=== PATIENT | female | born 1990 | race Caucasian/White ===

== ENCOUNTER 2018-12-31 19:12 | Inpatient (IN) | payer BC ==
[2018-12-31] MEDS ORDERED: Terbutaline 1 MG/ML SDV SUBCUT PRN (20:47)
[2018-12-31] MEDS ORDERED: Oxytocin/0.9 % Sodium Chloride 30 UNIT/500 ML BAG IV SCH ×2 (21:00→21:45)
[2018-12-31] MEDS ORDERED: Sodium Chloride 0.9% 10 ML SDV IV PRN (21:42)
[2018-12-31] MEDS ORDERED: Misoprostol 200 MCG Tab PO PRN (21:42)
[2018-12-31] MEDS ORDERED: Carboprost Tromethamine 250 MCG/1 ML Amp IM PRN (21:42)
[2018-12-31] MEDS ORDERED: Sodium Chloride 0.9% 10 ML Syringe FLUSH PRN (21:42)
[2018-12-31] MEDS ORDERED: Nalbuphine 10 MG/1 ML Vial IVPUSH PRN (21:42)
[2018-12-31] MEDS ORDERED: Tranexamic Acid 1,000 MG in Sodium Chloride 0.9% 100 ML IV PRN (21:42)
[2018-12-31] MEDS ORDERED: Butorphanol 1 MG/ML SDV IVPUSH PRN (21:42)
[2018-12-31] MEDS ORDERED: Methylergonovine 0.2 MG/1 ML Amp IM PRN (21:42)
[2018-12-31] MEDS ORDERED: Lidocaine 1% 50 ML MDV INJECT PRN (21:42)
[2018-12-31] MEDS ORDERED: Sodium Chloride 0.9% 2.5 ML Syringe FLUSH PRN (21:42)
[2018-12-31] MEDS ORDERED: Water For Irrigation,Sterile 1,000 ML Container IRR PRN (21:42)
[2018-12-31] MEDS: Lactated Ringers 1,000 ML IV SCH (22:12)
--- NOTE | 2018-12-31 22:22 | PCM.SN ---
- Free Text/Narrative Note: Called to LDR2 for an IV start. 2 previous unsuccessful attempts by RN. 20 g IV in right hand on second attempt. Dressed and flushed. Care to RN.
[2019-01-01] MEDS: Lactated Ringers 1,000 ML IV SCH ×2 (00:01→02:29)
--- NOTE | 2019-01-01 00:28 | PCM.PREANE ---
Preanesthetic Assessment - Anesthesia/Transfusion/Family Hx Anesthesia History: Prior Anesthesia Without Reaction Family History of Anesthesia Reaction: No Transfusion History: No Prior Transfusion(s) - Review of Systems General: No Symptoms Pulmonary: No Symptoms Cardiovascular: No Symptoms Gastrointestinal: No Symptoms Neurological: No Symptoms Other: Reports: None - Physical Assessment NPO Status Date: 12/31/18 NPO Status Time: 23:45 (crackers) Height: 5 ft 4 in Weight: 97.522 kg ASA Class: 2E Mental Status: Alert & Oriented x3 Airway Class: Mallampati = 3 Dentition: Reports: Normal Dentition Thyro-Mental Finger Breadths: 3 ROM/Head Extension: Full Lungs: Clear to Auscultation, Normal Respiratory Effort Cardiovascular: Regular Rate, Regular Rhythm - Lab Values: Laboratory Last Values WBC 9.55 K/uL (4.0-11.0) 12/31/18 21:55 RBC 4.09 M/uL (4.30-5.90) L 12/31/18 21:55 Hgb 12.6 g/dL (12.0-16.0) 12/31/18 21:55 Hct 36.5 % (36.0-46.0) 12/31/18 21:55 MCV 89.2 fL (80.0-98.0) 12/31/18 21:55 MCH 30.8 pg (27.0-32.0) 12/31/18 21:55 MCHC 34.5 g/dL (31.0-37.0) 12/31/18 21:55 RDW Std Deviation 43.4 fl (28.0-62.0) 12/31/18 21:55 RDW Coeff of Antony 13 % (11.0-15.0) 12/31/18 21:55 Plt Count 186 K/uL (150-400) 12/31/18 21:55 MPV 10.30 fL (7.40-12.00) 12/31/18 21:55 Nucleated RBC % 0.0 /100WBC 12/31/18 21:55 Nucleated RBCs # 0 K/uL 12/31/18 21:55 Membrane Rupture POSITIVE 12/31/18 18:38 Blood Type O POSITIVE 12/31/18 21:55 Antibody Screen NEGATIVE 12/31/18 21:55 - Allergies Allergies/Adverse Reactions: Allergies Allergy/AdvReac Type Severity Reaction Status Date / Time clarithromycin [From Biaxin] Allergy Rash Verified 12/31/18 19:20 - Acknowledgements Anesthesia Type Planned: Epidural Pt an Appropriate Candidate for the Planned Anesthesia: Yes Alternatives and Risks of Anesthesia Discussed w Pt/Guardian: Yes Pt/Guardian Understands and Agrees with Anesthesia Plan: Yes PreAnesthesia Questionnaire - Past Health History Medical/Surgical History: Denies 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: - Infectious Disease History Infectious Disease History: Reports: Chicken Pox - SUBSTANCE USE Smoking Status *Q: Never Smoker Second Hand Smoke Exposure: No - HOME MEDS Home Medications: Home Meds Levothyroxine [Synthroid] 1 tab PO DAILY 12/31/18 [History] PNV95/Ferrous Fumarate/FA [ Vitamin Tablet] 1 tab PO DAILY 12/31/18 [ History] Vitamin B Complex 1 cap PO DAILY 12/31/18 [History] - CURRENT (IN HOUSE) MEDS Current Meds: Current Medications Butorphanol Tartrate (Stadol) 1 mg IVPUSH Q1H PRN PRN Reason: Pain Carboprost Tromethamine (Hemabate Ds) 250 mcg IM ASDIRECTED PRN PRN Reason: Post Hemorrhage Oxytocin/Sodium Chloride (Oxytocin 30 Unit/500 Ml-Ns) 30 unit in 500 mls @ 2 mls/hr IV TITRATE [facility]; Protocol Last Titration: 12/31/18 23:11 Dose: 4 munits/min, 4 mls/hr Tranexamic Acid 1,000 mg/ (Sodium Chloride) 110 mls @ 660 mls/hr IV ONETIME PRN PRN Reason: Bleeding Lactated Ringer's (Ringers, Lactated) 1,000 mls @ 150 mls/hr IV ASDIRECTED AHMET Last Admin: 01/01/19 00:01 Dose: 999 mls/hr Oxytocin/Sodium Chloride (Oxytocin 30 Unit/500 Ml-Ns) 30 unit in 500 mls @ 999 mls/hr IV TITRATE AHMET Lidocaine HCl (Xylocaine 1%) 50 ml INJECT ONETIME PRN PRN Reason: Laceration repair Methylergonovine Maleate (Methergine) 0.2 mg IM ASDIRECTED PRN PRN Reason: Post Hemorrhage Misoprostol (Cytotec) 200 mcg PO ONETIME PRN PRN Reason: Post Hemorrhage Nalbuphine HCl (Nubain) 10 mg IVPUSH Q1H PRN PRN Reason: Pain (severe 7-10) Sodium Chloride (Saline Flush) 10 ml FLUSH ASDIRECTED PRN PRN Reason: Keep Vein Open Sodium Chloride (Saline Flush) 2.5 ml FLUSH ASDIRECTED PRN PRN Reason: Keep Vein Open Sodium Chloride (Normal Saline) 10 ml IV ASDIRECTED PRN PRN Reason: IV Use Sterile Water (Sterile Water For Irrigation) 1,000 ml IRR ASDIRECTED PRN PRN Reason: delivery Terbutaline Sulfate (Brethine) 0.25 mg SUBCUT ASDIRECTED PRN PRN Reason: Tacysystole Discontinued Medications Fentanyl/Bupivacaine HCl (Snfnkhxr-Ryupi-Pu 2 Mcg/Ml-0.125%) Confirm Administered Dose 100 mls @ as directed .ROUTE .[employer]-MED ONE Stop: 12/31/18 23:58
[2019-01-01] MEDS ORDERED: Acetaminophen 500 MG Tab PO ONE (07:17)
[2019-01-01] MEDS ORDERED: fentaNYL 100 MCG/2 ML SDV ONE (07:38)
[2019-01-01] MEDS ORDERED: Bupivacaine 0.5% 10 ML SDV ONE (07:39)
[2019-01-01] MEDS ORDERED: Docusate Sodium 100 MG Cap PO PRN (10:10)
[2019-01-01] MEDS ORDERED: Bisacodyl 10 MG Supp RECTAL PRN (10:10)
[2019-01-01] MEDS ORDERED: Benzocaine/Menthol 20%-0.5% Spray 78 GM Cannister TOP PRN (10:10)
[2019-01-01] MEDS ORDERED: Lanolin 100% Cream 7 GM Tube TOP PRN (10:10)
[2019-01-01] MEDS ORDERED: Aluminum Hydroxide/Magnesium Hydroxide/Simethicone Susp 30 ML Cup PO PRN (10:10)
[2019-01-01] MEDS ORDERED: oxyCODONE 5 MG Tab PO PRN (10:10)
[2019-01-01] MEDS ORDERED: Ibuprofen 400 MG Tab PO PRN (10:10)
[2019-01-01] MEDS ORDERED: Acetaminophen 500 MG Tab PO PRN (10:10)
[2019-01-01] MEDS ORDERED: Witch Hazel Medicated Pads 40/Jar TOP PRN (10:10)
--- NOTE | 2019-01-01 10:15 | PCM.OPNOTE ---
- General Post-Op/Procedure Note Date of Surgery/Procedure: 01/01/19 Operative Procedure(s): /1 st MLL repaired Findings: Viable female APGARs 9, 9 weight 3610 gm. Spontaneous delivery of intact placenta with 3V cord Pre Op Diagnosis: 39/5 week IUP. PROM Post-Op Diagnosis: Same Anesthesia Technique: Epidural Primary Surgeon: Jessica Way EBL in mLs: 300 Complications: none known Condition: Good Free Text/Narrative:: Intake & Output 12/31/18 01/01/19 01/01/19 22:59 06:59 14:59 Intake Total 1999 Balance 1999 Dictation [id number]
[2019-01-01] MEDS: Ibuprofen 800 MG Tab PO PRN ×2 (13:29→19:33)
--- NOTE | 2019-01-01 15:05 | OR ---
SURGEON: Jessica Way M.D. DATE OF PROCEDURE: PREOPERATIVE DIAGNOSES: 1. A 39-5/7 weeks' intrauterine . 2. Premature rupture of membranes. POSTOPERATIVE DIAGNOSES: 1. A 39-5/7 weeks' intrauterine . 2. Premature rupture of membranes. PROCEDURE: Spontaneous vaginal delivery, first-degree midline laceration repaired. PRIMARY SURGEON: Jessica Way MD. ANESTHESIA: Epidural. ESTIMATED BLOOD LOSS: 300 mL. FINDINGS: Viable female. scores 9 at 1 minute and 9 at 5 minutes. Weight 3610 g. Spontaneous delivery, intact placenta, 3-vessel cord. DISPOSITION: to nursery, mom in LDRP. PROCEDURE DETAILS: Oralia is a 28-year-old G2, P1, at 39-5/7 weeks' gestational age, who was admitted on the evening of 12/31/2018 with leakage of fluid and found to be spontaneously ruptured. She is group B strep negative. Category 1 heart tones. After being admitted, routine labs drawn. She was monitored, and with no evidence of active labor, we initiated on Pitocin augmentation. Progressed slowly through the business test analyst hours from 3 to 4 cm to 5 to 6 cm. Shortly after 8 a.m., she was found to be 6 to 7 cm. IUPC had been placed and forebag had been ruptured at approximately 7 a.m. Clear fluid was noted. Pitocin was titrated for an adequate pattern and progress was more rapidly thereafter. Within the next hour, progressed to complete, 100% effaced, +1 station. I was called for delivery. Upon arrival, the patient was placed in modified dorsal lithotomy position, was prepped and draped in the usual aseptic manner. She was complete, 100% effaced, +3 station. Continued with pushing efforts. Was able to push to deliver the infant's head atraumatically spontaneously followed by anterior shoulder, posterior shoulder, and remainder of the body without difficulty. The 's oropharynx and nares were bulb suctioned. Infant was handed off to her mother with attending nursing staff at the side. After delay, cord was clamped x2 and cut. Cord arterial, cord venous, cord blood sampling obtained. Light pressure was applied while the placenta was delivered spontaneously intact. Vigorous fundal uterine massage was then applied while 30 units of Pitocin was delivered in 500 mL IV fluid. Upon inspection of cervix, vaginal sidewalls, and perineum, there was found to be a first-degree midline laceration. This was repaired using 3-0 Vicryl in the usual fashion. Uterus remained firm. Hemostasis evident. Sponge count, needle count, and instrument count were correct. The patient remained in LDRP, infant to nursery. SAVITA / DONATO /[id number]
--- NOTE | 2019-01-01 20:36 | PCM48HPAN ---
Post Anesthesia Note - EVALUATION WITHIN 48HRS OF ANESTHETIC Vital Signs in Normal Range: Yes Patient Participated in Evaluation: Yes Respiratory Function Stable: Yes Airway Patent: Yes Cardiovascular Function Stable: Yes Hydration Status Stable: Yes Pain Control Satisfactory: Yes Nausea and Vomiting Control Satisfactory: Yes Mental Status Recovered: Yes Resp Rate: 16 - COMMENTS/OBSERVATIONS Free Text/Narrative:: Denies any complaints
[2019-01-01] MEDS: Acetaminophen 500 MG Tab PO PRN (21:24)
[2019-01-02] MEDS: Ibuprofen 800 MG Tab PO PRN ×2 (03:10→10:19)
[2019-01-02] MEDS: Acetaminophen 500 MG Tab PO PRN ×2 (03:11→07:26)
--- NOTE | 2019-01-02 08:12 | PCM.PNPP ---
- General Info Date of Service: 01/02/19 Functional Status: Reports: Pain Controlled, Tolerating Diet, Ambulating, Urinating - Review of Systems General: Denies: Fever, Weakness, Fatigue Pulmonary: Denies: Shortness of Breath Cardiovascular: Denies: Chest Pain, Palpitations, Lightheadedness Gastrointestinal: Denies: Abdominal Pain, Nausea, Vomiting Genitourinary: Reports: No Symptoms Musculoskeletal: Reports: No Symptoms Skin: Reports: No Symptoms Neurological: Reports: No Symptoms Psychiatric: Reports: No Symptoms - General Info Date of Service: 01/02/19 - Patient Data Vital Signs - Most Recent: Last Vital Signs Temp 36.3 C 01/02/19 04:21 Pulse 85 01/02/19 04:21 Resp 16 01/02/19 04:21 BP 101/70 01/02/19 04:21 Pulse Ox 98 01/02/19 04:21 Weight - Most Recent: 97.522 kg Lab Results - Last 24 Hours: Laboratory Results - last 24 hr 01/01/19 01/02/19 Range/Units 09:53 06:28 Hgb 11.9 L (12.0-16.0) g/dL Hct 35.2 L (36.0-46.0) % Cord ABG pH 7.230 (7.18-7.38) Cord ABG Base Excess -5 (-10--2) Cord VBG pH 7.313 (7.25-7.45) Cord VBG Base Excess -5 (-10--2) Med Orders - Current: Current Medications Acetaminophen (Tylenol Extra Strength) 500 mg PO Q4H PRN PRN Reason: Pain Acetaminophen (Tylenol Extra Strength) 1,000 mg PO Q4H PRN PRN Reason: Pain Last Admin: 01/02/19 07:26 Dose: 1,000 mg Al Hydroxide/Mg Hydroxide (Mag-Al Plus) 30 ml PO Q8H PRN PRN Reason: Heartburn Benzocaine/Menthol (Dermoplast Pain Relief 20%-0.5% [place]) 78 gm TOP ASDIRECTED PRN PRN Reason: Perineal Comfort Measure Last Admin: 01/01/19 13:23 Dose: 1 canister Bisacodyl (Dulcolax) 10 mg RECTAL ONETIME PRN PRN Reason: Constipation Carboprost Tromethamine (Hemabate Ds) 250 mcg IM ASDIRECTED PRN PRN Reason: Post Hemorrhage Docusate Sodium (Colace) 100 mg PO BID PRN PRN Reason: Constipation Last Admin: 01/01/19 21:24 Dose: 100 mg Emollient Ointment (Lansinoh Hpa) 0 gm TOP ASDIRECTED PRN PRN Reason: Sore Nipples Last Admin: 01/01/19 21:24 Dose: 7 gram Oxytocin/Sodium Chloride (Oxytocin 30 Unit/500 Ml-Ns) 30 unit in 500 mls @ 2 mls/hr IV TITRATE AHMET; Protocol Last Titration: 01/01/19 09:56 Dose: 500 munits/min, 500 mls/hr Tranexamic Acid 1,000 mg/ (Sodium Chloride) 110 mls @ 660 mls/hr IV ONETIME PRN PRN Reason: Bleeding Lactated Ringer's (Ringers, Lactated) 1,000 mls @ 150 mls/hr IV ASDIRECTED AHMET Last Admin: 01/01/19 02:29 Dose: 150 mls/hr Oxytocin/Sodium Chloride (Oxytocin 30 Unit/500 Ml-Ns) 30 unit in 500 mls @ 999 mls/hr IV TITRATE AHMET Ibuprofen (Motrin) 400 mg PO Q4H PRN PRN Reason: Pain Ibuprofen (Motrin) 800 mg PO Q6H PRN PRN Reason: Pain Last Admin: 01/02/19 03:10 Dose: 800 mg Methylergonovine Maleate (Methergine) 0.2 mg IM ASDIRECTED PRN PRN Reason: Post Hemorrhage Oxycodone HCl (Oxycodone) 5 mg PO Q2H PRN PRN Reason: Pain Sodium Chloride (Saline Flush) 10 ml FLUSH ASDIRECTED PRN PRN Reason: Keep Vein Open Sodium Chloride (Saline Flush) 2.5 ml FLUSH ASDIRECTED PRN PRN Reason: Keep Vein Open Sodium Chloride (Normal Saline) 10 ml IV ASDIRECTED PRN PRN Reason: IV Use Terbutaline Sulfate (Brethine) 0.25 mg SUBCUT ASDIRECTED PRN PRN Reason: Tacysystole Witch Izzy (Tucks) 1 pad TOP ASDIRECTED PRN PRN Reason: comfort care Last Admin: 01/01/19 13:23 Dose: 1 container Discontinued Medications Acetaminophen (Tylenol Extra Strength) 1,000 mg PO ONETIME ONE Stop: 01/01/19 07:18 Last Admin: 01/01/19 07:55 Dose: 1,000 mg Bupivacaine HCl (Sensorcaine-Mpf 0.5%) Confirm Administered Dose 10 ml .ROUTE .STK-MED ONE Stop: 01/01/19 07:40 Last Admin: 01/01/19 19:12 Dose: Not Given Butorphanol Tartrate (Stadol) 1 mg IVPUSH Q1H PRN PRN Reason: Pain Fentanyl (Sublimaze) Confirm Administered Dose 100 mcg .ROUTE .STK-MED ONE Stop: 01/01/19 07:39 Last Admin: 01/01/19 19:12 Dose: Not Given Fentanyl/Bupivacaine HCl (Lymmmzda-Bbzfn-Bz 2 Mcg/Ml-0.125%) Confirm Administered Dose 100 mls @ as directed .ROUTE .[employer]-MED ONE Stop: 12/31/18 23:58 Last Admin: 01/01/19 19:12 Dose: Not Given Fentanyl/Bupivacaine HCl (Wcqamdbl-Ppwha-Qq 2 Mcg/Ml-0.125%) Confirm Administered Dose 100 mls @ as directed .ROUTE .[employer]-MED ONE Stop: 01/01/19 07:46 Last Admin: 01/01/19 19:12 Dose: Not Given Lidocaine HCl (Xylocaine 1%) 50 ml INJECT ONETIME PRN PRN Reason: Laceration repair Misoprostol (Cytotec) 200 mcg PO ONETIME PRN PRN Reason: Post Hemorrhage Nalbuphine HCl (Nubain) 10 mg IVPUSH Q1H PRN PRN Reason: Pain (severe 7-10) Sterile Water (Sterile Water For Irrigation) 1,000 ml IRR ASDIRECTED PRN PRN Reason: delivery - Infant Interaction Support Person: - Recovery Exam Fundal Tone: Firm Fundal Level: 2 Fingerbreadths Below Umbilicus Fundal Placement: Midline Lochia Amount: None Lochia Color: Rubra/Red Perineum Description: Other (see below) Other Perinuem Description: first degree laceration with repair Episiotomy/Laceration: Approximated Bladder Status: Voiding Urinary Elimination: Voided - Exam General: Alert, Oriented Lungs: Normal Respiratory Effort Cardiovascular: Regular Rate, Regular Rhythm GI/Abdominal Exam: Soft, Non-Tender Extremities: Pedal Edema (1+). No: Nicole's Sign Skin: Warm, Dry, Intact Neurological: No New Focal Deficit Psy/Mental Status: Alert, Normal Affect, Normal Mood - Problem List & Annotations (1) Vaginal delivery SNOMED Code(s): 629246526 Code(s): O80 - ENCOUNTER FOR FULL-TERM UNCOMPLICATED DELIVERY Status: Acute Current Visit: No - Problem List Review Problem List Initiated/Reviewed/Updated: Yes - My Orders Last 24 Hours: My Active Orders 01/01/19 10:10 Patient Status [ADT] Routine May Shower [RC] ASDIRECTED Up ad Lauren [RC] ASDIRECTED Vital Signs [RC] PER UNIT ROUTINE Acetaminophen [Tylenol Extra Strength] 1,000 mg PO Q4H PRN Acetaminophen [Tylenol Extra Strength] 500 mg PO Q4H PRN Alum Hydrox/Mag Hydrox/Simeth [Mag-Al Plus] 30 ml PO Q8H PRN Benzocaine/Menthol [Dermoplast Pain Relief 20%-0.5% [place]] 78 gm TOP ASDIRECTED PRN Bisacodyl [Dulcolax] 10 mg RECTAL ONETIME PRN Docusate Sodium [Colace] 100 mg PO BID PRN Ibuprofen [Motrin] 400 mg PO Q4H PRN Ibuprofen [Motrin] 800 mg PO Q6H PRN Lanolin [Lansinoh HPA] See Dose Instructions TOP ASDIRECTED PRN Witch Izzy [Tucks] 1 pad TOP ASDIRECTED PRN oxyCODONE 5 mg PO Q2H PRN Assess Lochia [WOMSER] Per Unit Routine Assess Uterine Involution [WOMSER] Per Unit Routine Ice Therapy [OM.PC] Per Unit Routine Perineal Care [OM.PC] Per Unit Routine Peripheral IV Discontinue [OM.PC] Routine Sitz Bath [OM.PC] Per Unit Routine 01/01/19 Lunch Regular Diet [DIET] 01/02/19 08:10 Ready for Discharge [RC] PER UNIT ROUTINE - Assessment Assessment:: PPD 1 status post /1st MLL repaired - Plan Plan:: Would like to go home later today. Discharge to home. Discharge instructions reviewed. Follow up at [facility] 6 weeks. Infection and bleeding warnings reviewed.
[2019-01-02 11:00] VITALS: BP 118/63
== END 2019-01-02 12:30 | disposition home or self-care (01) | DRG 560 ==
LOC: MW.OBCHECK 19:12 → MW.OB 19:53 → MW.OBCHECK 21:34 → OBSVTOIN 01-01 09:53 → MW.OB 01-01 16:00
PROVIDERS: ADMIT Obstetrics & Gynecology; ATTEND Obstetrics & Gynecology
PROC: 10E0XZZ Delivery of Products of Conception, External Approach (ICD-10-PCS; principal; 2019-01-01)
PROC: 3E0R3BZ Introduction of Anesthetic Agent into Spinal Canal, Percutaneous Approach (ICD-10-PCS; 2019-01-01)
PROC: 00HU33Z Insertion of Infusion Device into Spinal Canal, Percutaneous Approach (ICD-10-PCS; 2019-01-01)
PROC: 10H07YZ Insertion of Other Device into Products of Conception, Via Natural or Artificial Opening (ICD-10-PCS; 2019-01-01)
PROC: 0HQ9XZZ Repair Perineum Skin, External Approach (ICD-10-PCS; 2019-01-01)
DX: O99.284 Endocrine, nutritional and metabolic diseases complicating childbirth (principal); E03.9 Hypothyroidism, unspecified; Z3A.39 39 weeks gestation of pregnancy; Z37.0 Single live birth; Z88.1 Allergy status to other antibiotic agents; O70.0 First degree perineal laceration during delivery
CPT/HCPCS: 36410; 36415; 51702; 59025; 59409; 82803; 84112; 85014; 85018; 85027; 86850; 86900; 86901; A9270-GY; J2590; J7120

== ENCOUNTER 2019-03-05 13:36 | Day surgery (SDC) | payer BC ==
[~2019-03-05 13:36] MED LIST: Bupivacaine 0.25% 10 ML SDV ONE; Glycopyrrolate 0.2 MG/ML SDV ONE; Ketorolac 30 MG/ML SDV ONE; Lidocaine 2% 5 ML SDV ONE; Midazolam 1 MG/ML 2 ML SDV ONE; Neostigmine Methylsulfate 1 MG/ML 5 ML Syringe ONE; Ondansetron 4 MG/2 ML SDV ONE; Propofol 200 MG/20 ML SDV ONE; Rocuronium 100 MG/10 ML Syringe ONE; ceFAZolin 2 GM in Premix Bag 1 BAG IV ONE; cefOXitin 2 GM in Premix Bag 1 BAG IV ONE; fentaNYL 250 MCG/5 ML SDV ONE
[2019-03-05] MEDS ORDERED: Levofloxacin/Dextrose 5%-Water 750 MG in Premix Bag 1 BAG IV ONE (13:59)
[2019-03-05] MEDS: Lactated Ringers 1,000 ML IV SCH ×2 (14:00→17:35)
--- NOTE | 2019-03-05 14:06 | PCM.PREANE ---
Preanesthetic Assessment - Anesthesia/Transfusion/Family Hx Anesthesia History: Prior Anesthesia Without Reaction Family History of Anesthesia Reaction: No Transfusion History: No Prior Transfusion(s) Intubation History: Unknown - Review of Systems General: No Symptoms Pulmonary: No Symptoms Cardiovascular: No Symptoms Gastrointestinal: Abdominal Pain Neurological: No Symptoms Other: Reports: None - Physical Assessment ASA Class: 2E Mental Status: Alert & Oriented x3 Airway Class: Mallampati = 2 Dentition: Reports: Normal Dentition Thyro-Mental Finger Breadths: 3 Mouth Opening Finger Breadths: 3 ROM/Head Extension: Full Lungs: Clear to Auscultation, Normal Respiratory Effort Cardiovascular: Regular Rate, Regular Rhythm - Allergies Allergies/Adverse Reactions: Allergies Allergy/AdvReac Type Severity Reaction Status Date / Time clarithromycin [From Biaxin] Allergy Rash Verified 12/31/18 19:20 - Blood Blood Available: No - Anesthesia Plan Pre-Op Medication Ordered: None - Acknowledgements Anesthesia Type Planned: General Anesthesia Pt an Appropriate Candidate for the Planned Anesthesia: Yes Alternatives and Risks of Anesthesia Discussed w Pt/Guardian: Yes Pt/Guardian Understands and Agrees with Anesthesia Plan: Yes PreAnesthesia Questionnaire - Past Health History Medical/Surgical History: Denies Medical/Surgical History Gastrointestinal History: Reports: Other (See Below) (acute appendicitis) 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: - Infectious Disease History Infectious Disease History: Reports: Chicken Pox - Past Surgical History HEENT Surgical History: Reports: Oral Surgery Female Surgical History: Reports: Breast Reduction - HOME MEDS Home Medications: Home Meds Levothyroxine [Synthroid] 1 tab PO DAILY 12/31/18 [History] PNV95/Ferrous Fumarate/FA [ Vitamin Tablet] 1 tab PO DAILY 12/31/18 [ History] Vitamin B Complex 1 cap PO DAILY 12/31/18 [History] - CURRENT (IN HOUSE) MEDS Current Meds: Current Medications Lactated Ringer's (Ringers, Lactated) 1,000 mls @ 125 mls/hr IV ASDIRECTED AHMET Levofloxacin/Dextrose 750 mg/ (Premix) 150 mls @ 100 mls/hr IV ONETIME ONE Stop: 03/05/19 15:28 Discontinued Medications Bupivacaine HCl (Sensorcaine-Mpf 0.25%) Confirm Administered Dose 20 ml .ROUTE .STK-MED ONE Stop: 03/05/19 13:07 Fentanyl (Sublimaze) Confirm Administered Dose 250 mcg .ROUTE .STK-MED ONE Stop: 03/05/19 12:54 Glycopyrrolate (Robinul) Confirm Administered Dose 0.6 mg .ROUTE .STK-MED ONE Stop: 03/05/19 12:56 Glycopyrrolate (Robinul) Confirm Administered Dose 0.2 mg .ROUTE .STK-MED ONE Stop: 03/05/19 13:21 Cefazolin Sodium/Dextrose 2 gm (/ Premix) 50 mls @ 100 mls/hr IV ONETIME ONE Stop: 03/05/19 13:27 Cefoxitin Sodium 2 gm/ Premix 50 mls @ 100 mls/hr IV ONETIME ONE Stop: 03/05/19 13:31 Ketorolac Tromethamine (Toradol) Confirm Administered Dose 30 mg .ROUTE .STK- MED ONE Stop: 03/05/19 13:21 Lidocaine (Xylocaine-Mpf 2%) Confirm Administered Dose 5 ml .ROUTE .STK-MED ONE Stop: 03/05/19 13:21 Midazolam HCl (Versed 1 Mg/Ml) Confirm Administered Dose 2 mg .ROUTE .STK-MED ONE Stop: 03/05/19 12:54 Neostigmine Methylsulfate (Neostigmine) Confirm Administered Dose 5 mg .ROUTE .STK-MED ONE Stop: 03/05/19 12:56 Ondansetron HCl (Zofran) Confirm Administered Dose 4 mg .ROUTE .STK-MED ONE Stop: 03/05/19 13:21 Propofol (Diprivan 20 Ml) Confirm Administered Dose 200 mg .ROUTE .STK-MED ONE Stop: 03/05/19 12:54 Rocuronium [place] (Zemuron) Confirm Administered Dose 100 mg .ROUTE .STK-MED ONE Stop: 03/05/19 13:21 Succinylcholine Chloride (Succinylcholine Chloride) Confirm Administered Dose 200 mg .ROUTE .STK-MED ONE Stop: 03/05/19 13:21
--- NOTE | 2019-03-05 14:50 | PCM.SN ---
- Free Text/Narrative Note: hp dict [id number]
--- NOTE | 2019-03-05 15:31 | HP ---
DATE OF : 1990 PRIMARY CARE PHYSICIAN: None PCP The patient came by private car from [place] for acute appendicitis. HISTORY OF PRESENT ILLNESS: The patient is a 28-year-old lady, has abdominal pain, fever, and chills for about 3 days and thinks she is constipated and self-medicated. Plan is to seek help in the emergency room, got a CAT scan which shows acute appendicitis. The patient would then come by private car to come to our emergency room for further management. PAST MEDICAL HISTORY: Significant for no diabetes, ME, CVA, or hypertension. PAST SURGICAL HISTORY: Normal vaginal delivery x2, wisdom tooth, and breast reduction. ALLERGIES: Please refer to nursing for details. MEDICATIONS: Please refer to nursing for details. PHYSICAL EXAMINATION: GENERAL: A pleasant lady, very anxious, in no acute distress. HEENT: Normocephalic and atraumatic. Sclerae are anicteric. LUNGS: Clear to auscultation. HEART: Regular rate and rhythm. ABDOMEN: Soft and nondistended. No pulsating tender midline abdominal structure. Exquisite tenderness at the McBurney point. No rebound tenderness. LABORATORY DATA: White count is 11.7. A&P CAT scan reading is acute appendicitis. Our Radiology further report is saying that with 260 mL fluid in the peritoneum likely perforated. The patient will need timely surgery. Risks and benefits discussed with this patient for appendectomy laparoscopic versus open, and postop cause would depend on the patient's surgery. Plan has been discussed with the patient. The patient concurred to proceed as planned. As always, thank you for the kind referral. WES SEWELL /[id number] JORDI
[2019-03-05] MEDS ORDERED: Propofol 200 MG/20 ML SDV ONE (15:35)
[2019-03-05] MEDS ORDERED: fentaNYL 100 MCG/2 ML SDV ONE (15:37)
[2019-03-05] MEDS ORDERED: Midazolam 1 MG/ML 2 ML SDV ONE (15:45)
[2019-03-05] MEDS ORDERED: HYDROmorphone 2 MG/ML SDV IVPUSH ONE (15:53)
[2019-03-05] MEDS ORDERED: fentaNYL 100 MCG/2 ML SDV IVPUSH PRN (15:53)
--- NOTE | 2019-03-05 16:23 | PCM.OPNOTE ---
- General Post-Op/Procedure Note Date of Surgery/Procedure: 03/05/19 Operative Procedure(s): lap appendectomy, and drain place, surgicell placed, and peritoneal fluid sampled Findings: appendicitis suppurativa; gross perf not observed; and peritoneal fluid was clear straw yellow; surgicell placed, flat 10 selma drain placed; and peritoneal fluid sent for path; [id number] Pre Op Diagnosis: acute appendicitis Post-Op Diagnosis: Same Anesthesia Technique: General ET Tube Primary Surgeon: Jimmy Bean Pathology: sent Surgical Drain/Tube Type: Aric Lopes Flat Drain Complications: None Condition: Good
[2019-03-05] MEDS ORDERED: Morphine 4 MG/ML Syringe IVPUSH PRN (16:24)
[2019-03-05] MEDS ORDERED: Ondansetron 4 MG/2 ML SDV IVPUSH PRN ×2 (16:26→18:24)
[2019-03-05] MEDS ORDERED: Lactated Ringers 1,000 ML IV SCH (16:30)
--- NOTE | 2019-03-05 16:35 | PCM.POSTAN ---
POST ANESTHESIA ASSESSMENT - RESPIRATORY Respiratory Status: Respiratory Rate WNL - CARDIOVASCULAR CV Status: Pulse Rate WNL - GASTROINTESTINAL GI Status: No Symptoms, [place] - POST OP HYDRATION Hydration Status: Adequate & Stable
[2019-03-05] MEDS ORDERED: Haloperidol Lactate 5 MG/ML SDV IV STA (16:43)
--- NOTE | 2019-03-05 16:54 | PCM48HPAN ---
Post Anesthesia Note - EVALUATION WITHIN 48HRS OF ANESTHETIC Vital Signs in Normal Range: Yes Patient Participated in Evaluation: Yes Respiratory Function Stable: Yes Airway Patent: Yes Cardiovascular Function Stable: Yes Hydration Status Stable: Yes Pain Control Satisfactory: Yes Nausea and Vomiting Control Satisfactory: Yes Mental Status Recovered: Yes Resp Rate: 12
--- NOTE | 2019-03-05 17:15 | OR ---
SURGEON: Jimmy Bean MD DATE OF PROCEDURE: 03/05/2019 PREOPERATIVE DIAGNOSIS: Acute appendicitis. POSTOPERATIVE DIAGNOSIS: Appendicitis, suppurative. PROCEDURE PERFORMED: Laparoscopic appendectomy with drain placement and Surgicel placement. PRIMARY SURGEON: Jimmy Bean MD. PhD COMPLICATION: None. FINDINGS: The appendix has been already walled off by omentum and the surrounding organ, making it like a meatball, took some time to dissect it out. Gross perforation is not observed, but there is no doubt in my mind it is already perforated is because of lumps and bumps on the surface. However, peritoneal fluid is clear straw yellow, so maybe there is no perforation. Surgicel placed for hemostasis and 10-flat MARTINEZ drain placed. DESCRIPTION OF PROCEDURE: The patient was taken to the operating room and placed in the supine position. Following induction of general endotracheal anesthesia, the patient's abdomen was prepped and draped in the sterile fashion. A time-out has been called. The patient was identified. The procedure was identified. The antibiotics were identified. The procedure then proceeded. The abdomen was prepped and draped in a standard fashion. After assessment of appropriate landmarks, a 12 millimeter trocar was inserted supraumbilically using Optiview and pneumoperitoneum was then achieved. This was followed with placement of 5 millimeter port in the right upper quadrant and another 5 millimeter port infraumbilically. The camera was inserted supraumbilical site and two laparoscopic Orange retractors were then inserted through the other two sites. Following the cecum, the appendix was located. The appendix was then lifted up, and using a GI stapler the appendix was amputated at the base. And using the GI stapler, the mesoappendix was then amputated. The appendix was retrieved by an endoscopic bag and sent for pathologist. This was then followed by re-insertion of the camera to examine the staple line, and hemostasis. The trocars were then removed. The patient was then awakened, extubated, and transferred to the recovery room in hemodynamically stable condition. Prior to closing, sponge count and instrument count was correct. Dr. Bean was present throughout the whole procedure. As always, thank you for the kind referral. Intraoperative findings as dictated above. After the appendix was removed and Surgicel was placed on the staple line to help in hemostasis, a 10-flat MARTINEZ drain was put in the suprapubic trocar site, and the umbilical site was closed with 2-0 Vicryl, and skin approximated by use of skin staple. The other 2 trocar sites closed with skin staple and follow with the rest of the dictation. As always, thank you for the kind referral. WES SEWELL /[id number] MTDMichael
[2019-03-05] MEDS: Acetaminophen/oxyCODONE 325-5 MG Tab PO PRN ×2 (17:55→23:53)
[2019-03-05] MEDS ORDERED: ALPRAZOLAM 1 MG PO PRN (18:31)
[2019-03-05] MEDS ORDERED: ALPRAZolam 0.5 MG Tab PO PRN (18:37)
[2019-03-05] MEDS: Amoxicillin/Clavulanate K 875-125 MG Tab PO SCH (21:31)
[2019-03-06] MEDS: Lactated Ringers 1,000 ML IV SCH (01:44)
--- NOTE | 2019-03-06 06:40 | PCM48HPAN ---
Post Anesthesia Note - EVALUATION WITHIN 48HRS OF ANESTHETIC Vital Signs in Normal Range: Yes Patient Participated in Evaluation: Yes Respiratory Function Stable: Yes Airway Patent: Yes Cardiovascular Function Stable: Yes Hydration Status Stable: Yes Pain Control Satisfactory: Yes Nausea and Vomiting Control Satisfactory: Yes Mental Status Recovered: Yes Resp Rate: 17 - COMMENTS/OBSERVATIONS Free Text/Narrative:: no anesthesia problems
[2019-03-06] MEDS: Acetaminophen/oxyCODONE 325-5 MG Tab PO PRN (06:53)
[2019-03-06] MEDS ORDERED: Levothyroxine 100 MCG Tab PO SCH (07:00)
[2019-03-06 07:43] VITALS: BP 105/60
[2019-03-06] MEDS: Amoxicillin/Clavulanate K 875-125 MG Tab PO SCH (09:53)
== END 2019-03-06 10:49 | disposition home or self-care (01) ==
LOC: MW.SDS 13:36 → MW.MS 16:25 → MW.SDS 03-06 10:49
PROVIDERS: ATTEND Surgery
DX: K35.80 Unspecified acute appendicitis (principal); Z88.1 Allergy status to other antibiotic agents; Z79.899 Other long term (current) drug therapy
CPT/HCPCS: 44970; A4217; A9270; C1776; J0330; J1885; J1956; J2001; J2250; J2405; J2704; J3010; J3490; J7120; 88104; 88304

== ENCOUNTER 2020-12-16 16:55 | Emergency (ER) | payer BC ==
[2020-12-16] MEDS ORDERED: Ondansetron 4 MG/2 ML SDV IVPUSH ONE (18:23)
[2020-12-16] MEDS ORDERED: Sodium Chloride 0.9% 1,000 ML IV ONE (18:23)
--- NOTE | 2020-12-16 18:30 | EDM.PDOC ---
<Edi Pugh - Last Filed: 12/16/20 18:59> ED HPI GENERAL MEDICAL PROBLEM - General Chief Complaint: General Stated Complaint: PREGANCY MEDS ISSUES Time Seen by Provider: 12/16/20 17:56 Source of Information: Reports: Patient History Limitations: Reports: No Limitations - History of Present Illness INITIAL COMMENTS - FREE TEXT/NARRATIVE: Patient is a 30-year-old female who was sent over for evaluation. Patient has history of depression and anxiety and takes Cymbalta and Xanax. Patient, she was 5 weeks at this time she stopped taking those medications has been feeling little anxious. Patient reports some nausea vomiting some tremors as well. Patient states that she does not feel well and does not plan on restarting the anxiety or depression medication. This time patient has no abdominal pain vaginal bleeding or cramps. 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: Neurological History: Reports: Concussion, Migraines, Other (See Below) Other Neuro History: hx of motion sickness Psychiatric History: Reports: Anxiety Endocrine/Metabolic History: Reports: Hypothyroidism, Obesity/BMI 30+ - Infectious Disease History Infectious Disease History: Reports: Chicken Pox - Past Surgical History Head Surgeries/Procedures: Reports: None HEENT Surgical History: Reports: Oral Surgery Other HEENT Surgeries/Procedures: wisdom teeth removed Female Surgical History: Reports: Breast Reduction Social & Family History - Family History : Reports: Renal Calculus Endocrine/Metabolic: Reports: Diabetes, Type I, Other (See Below) Other Endocrine/Metabolic Family History: kidney failure Hematologic: Reports: Anemia Oncologic: Reports: Lung, Other (See Below) Other Oncologic Family History: melanoma - Caffeine Use Caffeine Use: Reports: Coffee ED ROS GENERAL - Review of Systems Review Of Systems: See Below Constitutional: Reports: No Symptoms HEENT: Reports: No Symptoms Respiratory: Reports: No Symptoms Cardiovascular: Reports: No Symptoms Endocrine: Reports: No Symptoms GI/Abdominal: Reports: No Symptoms : Reports: No Symptoms Musculoskeletal: Reports: No Symptoms Skin: Reports: No Symptoms Neurological: Reports: Tingling Psychiatric: Reports: No Symptoms Hematologic/Lymphatic: Reports: No Symptoms Immunologic: Reports: No Symptoms ED EXAM, GENERAL - Physical Exam Exam: See Below Exam Limited By: No Limitations General Appearance: Alert, WD/WN, No Apparent Distress Eye Exam: Bilateral Eye: EOMI, PERRL Respiratory/Chest: No Respiratory Distress, Lungs Clear Cardiovascular: Normal Peripheral Pulses, Regular Rate, Rhythm GI/Abdominal: Normal Bowel Sounds, Soft, Non-Tender Neurological: Alert, Oriented, Normal Cognition Course - Re-Assessments/Exams Free Text/Narrative Re-Assessment/Exam: 12/16/20 19:00 Spoke the patient again and she again denies any suicide homicide ideation. Patient has a family bedside and they both state the patient has no thoughts of wanting harm himself. We spoke to about giving patient benzos the patient is active withdrawal we can give a small dose of benzos. Dr. Pruitt just concerned about patient suicide thoughts but again patient denies any notes also mention it was here we have no records of the mention of things. Patient will have labs and ultrasound was negative can be discharged home. Departure - Departure Disposition: Home, Self-Care 01 Clinical Impression: Abdominal cramping affecting Withdrawal from benzodiazepine Qualifiers: Complication of substance-induced condition: uncomplicated Qualified Code(s): F13.230 - Sedative, hypnotic or anxiolytic dependence with withdrawal, uncomplicated - Discharge Information Instructions: Benzodiazepine Withdrawal, Abdominal Pain During Referrals: PCP,None [Primary Care Provider] - Forms: ED Department Discharge Additional Instructions: You have been seen and evaluated in the ER today secondary to your as well as concerns of withdrawing from your benzodiazepine, Xanax. After discussion with Dr. Pruitt, he has been given a dose of IV Ativan to help you with your current symptoms. She is recommended that you take Xanax 0.5 mg (half a tablet) every 8 hours only as needed for anxiety. Please keep your appointment on December 27 with your psychiatrist for further discussion regarding your antidepressant and antianxiety medications. Please return the ER if you have any new or concerning symptoms. Your ultrasound today revealed a roughly 5-1/2-week intrauterine . It was too early at this time to visualize any cardiac activity. The following information is given to patients seen in the emergency department who are being discharged to home. This information is to outline your options for follow-up care. We provide all patients seen in our emergency department with a follow-up referral. The need for follow-up, as well as the timing and circumstances, are variable depending upon the specifics of your emergency department visit. If you don't have a primary care physician on staff, we will provide you with a referral. We always advise you to contact your personal physician following an emergency department visit to inform them of the circumstance of the visit and for follow-up with them and/or the need for any referrals to a consulting specialist. The emergency department will also refer you to a specialist when appropriate. This referral assures that you have the opportunity for follow-up care with a specialist. All of these measure are taken in an effort to provide you with optimal care, which includes your follow-up. Under all circumstances we always encourage you to contact your private physician who remains a resource for coordinating your care. When calling for follow-up care, please make the office aware that this follow-up is from your recent emergency room visit. If for any reason you are refused follow-up, please contact the [facility] Emergency Department at and asked to speak to the emergency department charge nurse. [facility] - Primary Care [address] [place] [address] [place] [address] Sepsis Event Note (ED) - Evaluation Sepsis Screening Result: No Definite Risk - Assessment/Plan Plan: Patient is a 30-year-old female who found that she is 5 weeks presents today she is having nausea vomiting and body aches. Patient also states she was on Xanax and recently stopped the medication because she found she was . Patient plans again to stop the medication. On exam patient have any noticeable tremors or tongue fasciculation. Patient given IV fluids and Zofran for nausea and reassess. <Miguel Ángel Mas - Last Filed: 12/16/20 20:31> ED HPI GENERAL MEDICAL PROBLEM - History of Present Illness INITIAL COMMENTS - FREE TEXT/NARRATIVE: 8:28 PM: Signout received at 7 PM. This is a 30-year-old female who presents to the ER today secondary to concern of benzo withdrawal. Patient has been on Xanax 1 mg 3 times a day and Cymbalta. Patient has tried to stop her Xanax se condary to finding out that she is . Upon presentation to the ED there is concern about early withdrawal. Patient was given Ativan 1 mg IV with significant improvement in her symptoms. Patient reports that she feels much improved after the medication here in the ED. Patient had an ultrasound which revealed a 5-week IUP no heart activity at this time. Patient's beta hCG is 14,000. No evidence of ectopic . Case was discussed with Dr. Pruitt who has recommended that the patient take her Xanax half a tablet, 0.5 mg, 3 times a day only as needed. Patient has an appointment on December 27 with her psychiatrist for further evaluation of her Cymbalta. Patient has decreased her Cymbalta dose down to 60 mg. Patient adamantly denies any suicidal ideation or thoughts of self-harm. Patient and her family member at bedside have no concerns regarding safety or self-harm issues. I have discussed all this with the patient and her family member at bedside and they are both in complete agreement with the current plan as outlined. Patient will return to the ED if she develops any new or concerning symptoms. Reassessment at the time of disposition demonstrates that the patient is in no acute distress. The patient has remained stable throughout the entire ED visit and is without objective evidence for acute process requiring urgent intervention or hospitalization. The patient is stable for discharge, counseling is provided as documented above, discussed symptomatic treatment and specific conditions for return. I have spoken with the patient/caregiver and discussed todays findings, in addition to providing specific details for the plan of care. Questions are answered and there is agreement with the plan. Course - Vital Signs Last Recorded V/S: Last Vital Signs Temp 98.0 F 12/16/20 18:06 Pulse 76 12/16/20 18:06 Resp 18 12/16/20 18:06 BP 135/78 12/16/20 18:06 Pulse Ox 97 12/16/20 18:06 - Orders/Labs/Meds Orders: Active Orders 24 hr Category Date Time Status OB 1st Tri NT Measure [US] Stat Exams 12/16/20 19:01 Ordered Labs: Laboratory Tests 12/16/20 12/16/20 Range/Units 18:40 18:40 WBC 10.71 (4.0-11.0) K/uL RBC 4.81 (4.30-5.90) M/uL Hgb 15.7 (12.0-16.0) g/dL Hct 44.2 (36.0-46.0) % MCV 91.9 (80.0-98.0) fL MCH 32.6 H (27.0-32.0) pg MCHC 35.5 (31.0-37.0) g/dL RDW Std Deviation 41.4 (28.0-62.0) fl RDW Coeff of Antony 12 (11.0-15.0) % Plt Count 324 (150-400) K/uL MPV 10.20 (7.40-12.00) fL Neut % (Auto) 74.9 (48.0-80.0) % Lymph % (Auto) 19.0 (16.0-40.0) % Cobb % (Auto) 5.6 (0.0-15.0) % Eos % (Auto) 0.4 (0.0-7.0) % Baso % (Auto) 0.1 (0.0-1.5) % Neut # (Auto) 8.0 H (1.4-5.7) K/uL Lymph # (Auto) 2.0 (0.6-2.4) K/uL Cobb # (Auto) 0.6 (0.0-0.8) K/uL Eos # (Auto) 0.0 (0.0-0.7) K/uL Baso # (Auto) 0.0 (0.0-0.1) K/uL Nucleated RBC % 0.0 /100WBC Nucleated RBCs # 0 K/uL Sodium 137 (136-145) mmol/L Potassium 3.8 (3.5-5.1) mmol/L Chloride 100 (98-107) mmol/L Carbon Dioxide 21.7 (21.0-32.0) mmol/L BUN 10 (7.0-18.0) mg/dL Creatinine 0.8 (0.6-1.0) mg/dL Est Cr Clr Drug Dosing 90.41 mL/min Estimated GFR (MDRD) > 60.0 ml/min Glucose 80 (74-106) mg/dL Calcium 8.9 (8.5-10.1) mg/dL Total Bilirubin 0.8 (0.2-1.0) mg/dL AST 18 (15-37) IU/L ALT 24 (14-63) IU/L Alkaline Phosphatase 74 (46-116) U/L Total Protein 8.4 H (6.4-8.2) g/dL Albumin 4.4 (3.4-5.0) g/dL Globulin 4.0 (2.6-4.0) g/dL Albumin/Globulin Ratio 1.1 (0.9-1.6) HCG, Quant 56228.0 mIU/mL Meds: Medications Discontinued Medications Generic Name Dose Route Start Last Admin Trade Name Freq PRN Reason Stop Dose Admin Sodium Chloride 1,000 mls @ 999 mls/hr 12/16/20 18:23 12/16/20 18:45 Normal Saline IV 12/16/20 19:23 999 mls/hr .BOLUS ONE Administration Lorazepam 0.5 mg 12/16/20 18:57 12/16/20 19:07 Lorazepam 0.5 Mg Tab PO 12/16/20 18:58 0.5 mg ONETIME ONE Administration Ondansetron HCl 4 mg 12/16/20 18:23 12/16/20 18:45 Ondansetron 4 Mg/2 Ml Sdv IVPUSH 12/16/20 18:24 4 mg ONETIME ONE Administration Departure - Departure Time of Disposition: 20:30 Condition: Good Sepsis Event Note (ED) - Focused Exam Vital Signs: Vital Signs Temp Pulse Resp BP Pulse Ox 12/16/20 18:06 98.0 F 76 18 135/78 97
[2020-12-16] MEDS ORDERED: LORazepam 0.5 MG Tab PO ONE (18:57)
[2020-12-16 19:29] LABS: BLOOD UREA NITROGEN,BUN 10 mg/dL (7.0-18.0); CARBON DIOXIDE,CO2 21.7 mmol/L (21.0-32.0); CHLORIDE,CL 100 mmol/L (98-107); GLUCOSE RANDOM 80 mg/dL (74-106); POTASSIUM,K 3.8 mmol/L (3.5-5.1); SODIUM,NA 137 mmol/L (136-145)
[2020-12-16 21:04] VITALS: BP 136/96; PULSE 88
--- NOTE | 2020-12-16 21:08 | US ---
INDICATION: Five weeks TECHNIQUE: Ultrasound OB pelvis transvaginal. Real-time zamora-scale imaging of the pelvis was performed. COMPARISON: None available FINDINGS: An intrauterine gestational sac is seen, containing an apparent pole with a crown-rump length of 1 mm, out of range. cardiac activity is not documented. A yolk sac is seen, measuring 3 mm. The right ovary measures 2.1 x 3.3 x 4.3 cm and the left ovary measures 2.7 x 1.4 x 3.4 cm. Bilateral ovarian Doppler flow is documented. Small free fluid is seen. IMPRESSION: An early intrauterine gestation. The crown-rump length is out of range. No cardiac activity is documented at this time. Recommend correlation with beta hCG levels and short-term follow-up study to document viability. Small free fluid Dictated by Eric Nicholson MD @ 12/16/2020 9:06:[address] Eric Nicholson @ Dec 16 2020 9:06PM
== END 2020-12-16 21:05 | disposition home or self-care (01) ==
LOC: MW.ED 16:55
DX: O99.891 Other specified diseases and conditions complicating pregnancy (principal); O99.211 Obesity complicating pregnancy, first trimester; O99.281 Endocrine, nutritional and metabolic diseases complicating pregnancy, first trimester; O99.321 Drug use complicating pregnancy, first trimester; R10.9 Unspecified abdominal pain; F13.230 Sedative, hypnotic or anxiolytic dependence with withdrawal, uncomplicated; E03.9 Hypothyroidism, unspecified; E66.9 Obesity, unspecified; Z3A.01 Less than 8 weeks gestation of pregnancy; Z88.1 Allergy status to other antibiotic agents
CPT/HCPCS: 36415; 76813; 80053; 84702; 85025; 96374; 99284; A9270; J2405; J7030; 76816-26; 99283

== ENCOUNTER 2021-08-17 15:55 | Inpatient (IN) | payer BC ==
[2021-08-17] MEDS ORDERED: Terbutaline 1 MG/ML SDV SUBCUT PRN (22:22)
[2021-08-17] MEDS ORDERED: Ondansetron 4 MG/2 ML SDV IVPUSH PRN (22:22)
[2021-08-17] MEDS ORDERED: Misoprostol 25 MCG (1/4 of 100 MCG) Tab VAG PRN ×2 (22:22)
[2021-08-17] MEDS ORDERED: Lidocaine 1% 50 ML MDV INJECT PRN (22:22)
[2021-08-17] MEDS ORDERED: Sodium Chloride 0.9% 20 ML SDV IV PRN (22:22)
[2021-08-17] MEDS ORDERED: Sodium Chloride 0.9% 10 ML Syringe FLUSH PRN (22:22)
[2021-08-17] MEDS ORDERED: Misoprostol 200 MCG Tab PO PRN (22:22)
[2021-08-17] MEDS ORDERED: Tranexamic Acid 1,000 MG in Sodium Chloride 0.9% 100 ML IV PRN (22:22)
[2021-08-17] MEDS ORDERED: Sodium Chloride 0.9% 2.5 ML Syringe FLUSH PRN (22:22)
[2021-08-17] MEDS ORDERED: Water For Irrigation,Sterile 1,000 ML Container IRR PRN (22:22)
[2021-08-17] MEDS ORDERED: Carboprost Tromethamine 250 MCG/1 ML Amp IM PRN (22:22)
[2021-08-17] MEDS ORDERED: Nalbuphine 10 MG/1 ML Vial IVPUSH PRN (22:22)
[2021-08-17] MEDS ORDERED: Methylergonovine 0.2 MG/1 ML Amp IM PRN (22:22)
[2021-08-17] MEDS ORDERED: Oxytocin/0.9 % Sodium Chloride 30 UNIT/500 ML BAG IV SCH ×2 (22:30)
[2021-08-17] MEDS: Lactated Ringers 1,000 ML IV SCH (23:01)
[2021-08-18] MEDS: Butorphanol 1 MG/ML SDV IVPUSH PRN ×2 (03:50→05:02)
[2021-08-18] MEDS: Lactated Ringers 1,000 ML IV SCH ×2 (05:23→06:31)
[2021-08-18] MEDS ORDERED: Ropivacaine HCl/PF 100 ML ONE (06:20)
--- NOTE | 2021-08-18 06:41 | PCM.PREANE ---
Preanesthetic Assessment - Procedure Proposed Procedure: Labor Epidural - Anesthesia/Transfusion/Family Hx Anesthesia History: Prior Anesthesia Without Reaction Family History of Anesthesia Reaction: No Transfusion History: No Prior Transfusion(s) Intubation History: Unknown - Review of Systems General: No Symptoms Pulmonary: No Symptoms Cardiovascular: No Symptoms Gastrointestinal: No Symptoms Neurological: Other (Anxiety) Other: Reports: Thyroid Problems (thyroid) - Physical Assessment NPO Status Date: 08/18/21 NPO Status Time: 06:00 Height: 1.63 m Weight: 104.78 kg ASA Class: 2 Mental Status: Alert & Oriented x3 Airway Class: Mallampati = 2 Dentition: Reports: Normal Dentition Thyro-Mental Finger Breadths: 3 Mouth Opening Finger Breadths: 3 ROM/Head Extension: Full Lungs: Clear to Auscultation, Normal Respiratory Effort Cardiovascular: Regular Rate, Regular Rhythm - Lab Values: Laboratory Last Values WBC 8.04 K/uL (4.0-11.0) 08/17/21 20:15 RBC 4.08 M/uL (4.30-5.90) L 08/17/21 20:15 Hgb 12.2 g/dL (12.0-16.0) 08/17/21 20:15 Hct 35.2 % (36.0-46.0) L 08/17/21 20:15 MCV 86.3 fL (80.0-98.0) 08/17/21 20:15 MCH 29.9 pg (27.0-32.0) 08/17/21 20:15 MCHC 34.7 g/dL (31.0-37.0) 08/17/21 20:15 RDW Std Deviation 43.1 fl (28.0-62.0) 08/17/21 20:15 RDW Coeff of Antony 14 % (11.0-15.0) 08/17/21 20:15 Plt Count 229 K/uL (150-400) 08/17/21 20:15 MPV 10.90 fL (7.40-12.00) 08/17/21 20:15 Nucleated RBC % 0.0 /100WBC 08/17/21 20:15 Nucleated RBCs # 0 K/uL 08/17/21 20:15 SARS-CoV-2 RNA (HORTENCIA) NEGATIVE (NEGATIVE) 08/17/21 20:20 Blood Type O POSITIVE 08/17/21 20:15 Antibody Screen NEGATIVE 08/17/21 20:15 - Allergies Allergies/Adverse Reactions: Allergies Allergy/AdvReac Type Severity Reaction Status Date / Time clarithromycin [From Biaxin] Allergy Intermediate Hives Verified 08/17/21 23:30 - Blood Blood Available: Yes Product(s) Available: PRBC (Type and screen) - Anesthesia Plan Pre-Op Medication Ordered: None - Acknowledgements Anesthesia Type Planned: Epidural Pt an Appropriate Candidate for the Planned Anesthesia: Yes Alternatives and Risks of Anesthesia Discussed w Pt/Guardian: Yes Pt/Guardian Understands and Agrees with Anesthesia Plan: Yes PreAnesthesia Questionnaire - Past Health History Medical/Surgical History: Denies Medical/Surgical History HEENT History: Reports: None Gastrointestinal History: Reports: Other (See Below) Genitourinary History: Reports: None 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: Neurological History: Reports: Concussion, Migraines, Other (See Below) Other Neuro History: hx of motion sickness Psychiatric History: Reports: Anxiety Endocrine/Metabolic History: Reports: Hypothyroidism, Obesity/BMI 30+ - Infectious Disease History Infectious Disease History: Reports: Chicken Pox - Past Surgical History Head Surgeries/Procedures: Reports: None HEENT Surgical History: Reports: Oral Surgery Other HEENT Surgeries/Procedures: wisdom teeth removed Female Surgical History: Reports: Breast Reduction - HOME MEDS Home Medications: Home Meds Levothyroxine [Synthroid] 100 mcg PO DAILY 12/31/18 [History] ALPRAZolam [Xanax] 1 mg PO BID PRN 03/05/19 [History] Ondansetron [Zofran ODT] 4 mg PO Q6H PRN #12 tab.dis 12/16/20 [Rx] Vit/Iron Fumarate/FA [Mynatal-Z Captab] 1 each PO DAILY #90 tablet 12/16/20 [Rx] - CURRENT (IN HOUSE) MEDS Current Meds: Current Medications Butorphanol Tartrate (Butorphanol 1 Mg/Ml Sdv) 1 mg IVPUSH Q1H PRN PRN Reason: Pain (severe 7-10) Last Admin: 08/18/21 05:02 Dose: 1 mg Documented by: Carboprost Tromethamine (Carboprost Tromethamine 250 Mcg/1 Ml Amp) 250 mcg IM ASDIRECTED PRN PRN Reason: Post Hemorrhage Oxytocin/Sodium Chloride (Oxytocin 30 Unit In Ns 0.9% 500 Ml Premix) 30 unit in 500 mls @ 999 mls/hr IV TITRATE AHMET Tranexamic Acid 1,000 mg/ (Sodium Chloride) 110 mls @ 660 mls/hr IV ONETIME PRN PRN Reason: Bleeding Oxytocin/Sodium Chloride (Oxytocin 30 Unit In Ns 0.9% 500 Ml Premix) 30 unit in 500 mls @ 2 mls/hr IV TITRATE AHMET; Protocol Last Admin: 08/17/21 23:01 Dose: 2 munits/min, 2 mls/hr Documented by: Lactated Ringer's (Ringers, Lactated) 1,000 mls @ 150 mls/hr IV ASDIRECTED AHMET Last Admin: 08/18/21 06:31 Dose: 150 mls/hr Documented by: Lidocaine HCl (Lidocaine 1% 50 Ml Mdv) 50 ml INJECT ONETIME PRN PRN Reason: Laceration repair Methylergonovine Maleate (Methylergonovine 0.2 Mg/1 Ml Amp) 0.2 mg IM ASDIRECTED PRN PRN Reason: Post Hemorrhage Misoprostol (Misoprostol 200 Mcg Tab) 200 mcg PO ONETIME PRN PRN Reason: Post Hemorrhage Misoprostol (Misoprostol 25 Mcg (1/4 Of 100 Mcg) Tab) 25 mcg VAG ONETIME PRN PRN Reason: Cervical Ripening Misoprostol (Misoprostol 25 Mcg (1/4 Of 100 Mcg) Tab) 25 mcg VAG Q4H PRN PRN Reason: Cervical Ripening Nalbuphine HCl (Nalbuphine 10 Mg/1 Ml Vial) 10 mg IVPUSH Q1H PRN PRN Reason: Pain (severe 7-10) Ondansetron HCl (Ondansetron 4 Mg/2 Ml Sdv) 4 mg IVPUSH Q4H PRN PRN Reason: Nausea/Vomiting Sodium Chloride (Sodium Chloride 0.9% 10 Ml Syringe) 10 ml FLUSH ASDIRECTED PRN PRN Reason: Keep Vein Open Sodium Chloride (Sodium Chloride 0.9% 2.5 Ml Syringe) 2.5 ml FLUSH ASDIRECTED PRN PRN Reason: Keep Vein Open Sodium Chloride (Sodium Chloride 0.9% 20 Ml Sdv) 10 ml IV ASDIRECTED PRN PRN Reason: IV Use Sterile Water (Water For Irrigation,Sterile 1,000 Ml Container) 1,000 ml IRR ASDIRECTED PRN PRN Reason: delivery Terbutaline Sulfate (Terbutaline 1 Mg/Ml Sdv) 0.25 mg SUBCUT ASDIRECTED PRN PRN Reason: Tacysystole Discontinued Medications Ropivacaine (Naropin 0.2%) Confirm Administered Dose 100 mls @ as directed .ROUTE .[facility] ONE Stop: 08/18/21 06:21
--- NOTE | 2021-08-18 06:49 | PCM.SN.2 ---
- Pre-Procedure Checklist Attending Provider Aware: Yes Chart Reviewed: Yes Consent Signed: Yes Labs Reviewed: Yes VS/FHR Reviewed: Yes Patient Identification Confirmation Method: Reports: Chart Visual, Verbal Patient Pt an Appropriate Candidate for the Planned Anesthesia: Yes Alternatives and Risks of Anesthesia Discussed w Pt/Guardian: Yes - Procedure Procedure Start Date: 08/18/21 Procedure Start Time: 06:[address]: Reports: Blood Pressure, Heart Rate, SPO2 Functional IV: Yes Safety Measures: Reports: Patient Identified, Procedure Verified, Site Verified, Procedure Time Out Patient Position: Reports: Sitting Prep: Reports: Betadine x3 Local Anesthetic: Reports: Intradermal Wheal w Lidocaine 1% (3 ml) Regional Placement Level: Reports: L3-4 Needle: Reports: 17 g Touhy Approach: Reports: Midline Technique: Reports: FRANCIA Glass Syringe FRANCIA Needle Depth (cm): 8 cm Parasthesia: Reports: None Fluid Obtained: Reports: None Catheter Depth at Skin (cm): 15 cm Test Dose Time: 06:14 Test Dose Medication: Reports: Lidocaine 1.5% w Epinephrine 1:200,000 (5 ml) Test Dose Response: Reports: Negative Loading Dose Time: 06:28 Loading Dose Medication: Ropivicaine 0.2% Loading Dose Patient Position: Supine Continuous Infusion Start Time: 06:29 Continuous Infusion Medication: Ropivicaine 0.2% Continuous Infusion Rate: 12 Continuous Infusion PCS Bolus Option: 6 Continuous Infusion Lockout Dose (cc/hr): 15 (Min lockout) Patient Position Post Placement: Reports: Supline/NARENDRA Post-procedure Pain Level: 0 Level Achieved: T4 VS and FHR Monitored in Unit Post Placement: Yes Procedure End Date: 08/18/21 Procedure End Time: 07:06 Procedure Comment: Sterile Technique maintained throughout
--- NOTE | 2021-08-18 06:53 | PCM.POSTAN ---
POST ANESTHESIA ASSESSMENT - MENTAL STATUS Mental Status: Alert, Oriented - RESPIRATORY Respiratory Status: Respiratory Rate WNL, Airway Patent, O2 Saturation Stable - CARDIOVASCULAR CV Status: Pulse Rate WNL, Blood Pressure Stable - GASTROINTESTINAL GI Status: No Symptoms - POST OP HYDRATION Hydration Status: Adequate & Stable
[2021-08-18] MEDS ORDERED: ePHEDrine 50 MG/ML SDV IVPUSH PRN (07:02)
[2021-08-18] MEDS ORDERED: Ropivacaine HCl/PF 200 MG in Premix Bag 1 BAG EPIDUR SCH (07:15)
--- NOTE | 2021-08-18 09:22 | PCM.OPNOTE ---
- General Post-Op/Procedure Note Date of Surgery/Procedure: 08/18/21 Operative Procedure(s): /1st MLL repaired Findings: Viable female APGARs 8, 9 weight pending. Spontaneous delivery intact placenta with 3V cord Pre Op Diagnosis: 40/5 week IUP. IOL for past due PG Post-Op Diagnosis: Same Anesthesia Technique: Epidural Primary Surgeon: Jessica Way EBL in mLs: 250 Complications: none known Condition: Good Free Text/Narrative:: Dictation [id number]
[2021-08-18] MEDS ORDERED: oxyCODONE 5 MG Tab PO PRN (11:39)
[2021-08-18] MEDS ORDERED: Bisacodyl 10 MG Supp RECTAL PRN (11:39)
[2021-08-18] MEDS ORDERED: Benzocaine/Menthol 20%-0.5% Spray 78 GM Cannister TOP PRN (11:39)
[2021-08-18] MEDS ORDERED: Lanolin 100% Cream 7 GM Tube TOP PRN (11:39)
[2021-08-18] MEDS ORDERED: Docusate Sodium 100 MG Cap PO PRN (11:39)
[2021-08-18] MEDS ORDERED: Ibuprofen 400 MG Tab PO PRN (11:39)
[2021-08-18] MEDS ORDERED: Acetaminophen 500 MG Tab PO PRN ×2 (11:39)
[2021-08-18] MEDS ORDERED: Witch Hazel Medicated Pads 40/Jar TOP PRN (11:39)
--- NOTE | 2021-08-18 12:07 | OR ---
SURGEON: Jessica Way M.D. DATE OF PROCEDURE: 08/18/2021 PREOPERATIVE DIAGNOSES: 1. 40-5/7 week intrauterine . 2. Induction of labor for past due . POSTOPERATIVE DIAGNOSES: 1. 40-5/7 week intrauterine . 2. Induction of labor for past due . PROCEDURE: Spontaneous vaginal delivery, first-degree midline laceration repaired. PRIMARY SURGEON: Jessica Way M.D. ANESTHESIA: Epidural. ESTIMATED BLOOD LOSS: 250 mL. COMPLICATIONS: None known. FINDINGS: Viable female. score of 8 at one minute, 9 at five minutes. Weight is pending. Spontaneous delivery, intact placenta, 3-vessel cord. DISPOSITION: to nursery, mom in LDRP, stable. DESCRIPTION OF PROCEDURE: Oralia is a 30-year-old, G 4, P 2-0-1-2, at 40-4/7 weeks' gestational age, who presented on the late afternoon of 08/17/2021, for scheduled induction of labor due to past due . She was admitted and routine labs were drawn. IV hydration was initiated. heart tones category 1. She is COVID negative, group B strep negative. The patient was initiated on Pitocin shortly after 11 p.m., responded nicely to this throughout the emergency planning and response manager hours, became increasingly uncomfortable, underwent regional anesthesia in the form of epidural with clear fluid was noted with rupture of membranes. Shortly before 9 a.m., the patient was found to be complete, 100% effaced, at a +2 station, I presented for delivery. Upon my arrival, patient was placed in modified dorsal lithotomy position, was prepped and draped in usual aseptic manner. She was able to push effectively. With the next 3 contractions, was able to push to deliver 's head atraumatically spontaneously, followed by anterior shoulder, posterior shoulder, remaining body without difficulty. The 's oropharynx and nares were bulb suctioned. The infant was vigorous and crying. She was handed off to her mother and father with attending nursery staff at her side. After delay, cord was clamped x2 and cut. Cord arterial, cord venous, cord blood sampling were then obtained. Light pressure was applied, the placenta was delivered spontaneously intact. Vigorous fundal and uterine massage was then applied while 30 units Pitocin was delivered in 500 mL of fluid. Upon inspection of cervix, vaginal sidewalls, and perineum, there was a first-degree midline laceration repaired using 3-0 Vicryl in usual fashion. Hemostasis appeared evident. Sponge count, instrument count was correct. The patient remained in LDRP, in nursery. SAVITA / DONATO /[id number]
[2021-08-18] MEDS ORDERED: Lidocaine 1% 20 ML MDV INJECT PRN (12:17)
[2021-08-18] MEDS: Ibuprofen 800 MG Tab PO PRN ×2 (13:20→19:48)
[2021-08-19] MEDS: Ibuprofen 800 MG Tab PO PRN (04:50)
--- NOTE | 2021-08-19 09:27 | PCM.PNPP ---
- General Info Date of Service: 08/19/21 Functional Status: Reports: Pain Controlled, Tolerating Diet, Ambulating, Urinating - Review of Systems General: Reports: Fatigue. Denies: Fever, Weakness Pulmonary: Denies: Shortness of Breath Cardiovascular: Denies: Chest Pain, Palpitations, Lightheadedness Gastrointestinal: Denies: Abdominal Pain, Nausea, Vomiting Genitourinary: Denies: Flank Pain Musculoskeletal: Reports: No Symptoms Skin: Reports: No Symptoms Neurological: Reports: No Symptoms Psychiatric: Reports: No Symptoms - General Info Date of Service: 08/19/21 - Patient Data Vital Signs - Most Recent: Last Vital Signs Temp 36.3 C 08/19/21 04:00 Pulse 80 08/19/21 04:00 Resp 16 08/19/21 04:00 BP 116/81 08/19/21 04:00 Pulse Ox 97 08/19/21 04:00 Weight - Most Recent: 104.78 kg Lab Results - Last 24 Hours: Laboratory Results - last 24 hr 08/18/21 08/19/21 Range/Units 08:58 05:45 Hgb 11.5 L (12.0-16.0) g/dL Hct 34.1 L (36.0-46.0) % Cord ABG pH 7.226 (7.18-7.38) Cord ABG Base Excess -1.4 H (-10--2) Cord VBG pH 7.305 (7.25-7.45) Cord VBG Base Excess -0.4 H (-10--2) Med Orders - Current: Current Medications Acetaminophen (Acetaminophen 500 Mg Tab) 500 mg PO Q4H PRN PRN Reason: Pain (mild 1-3) Acetaminophen (Acetaminophen 500 Mg Tab) 1,000 mg PO Q4H PRN PRN Reason: Pain (mild 1-3) Last Admin: 08/18/21 18:11 Dose: 1,000 mg Documented by: Benzocaine/Menthol (Benzocaine/Menthol 20%-0.5% [place] 78 Gm Cannister) 78 gm TOP ASDIRECTED PRN PRN Reason: Perineal Comfort Measure Last Admin: 08/18/21 13:22 Dose: 78 gm Documented by: Bisacodyl (Bisacodyl 10 Mg Supp) 10 mg RECTAL ONETIME PRN PRN Reason: Constipation Butorphanol Tartrate (Butorphanol 1 Mg/Ml Sdv) 1 mg IVPUSH Q1H PRN PRN Reason: Pain (severe 7-10) Last Admin: 08/18/21 05:02 Dose: 1 mg Documented by: Carboprost Tromethamine (Carboprost Tromethamine 250 Mcg/1 Ml Amp) 250 mcg IM ASDIRECTED PRN PRN Reason: Post Hemorrhage Docusate Sodium (Docusate Sodium 100 Mg Cap) 100 mg PO Q12H PRN PRN Reason: Constipation Last Admin: 08/19/21 09:01 Dose: 100 mg Documented by: Emollient Ointment (Lanolin 100% Cream 7 Gm Tube) 0 gm TOP ASDIRECTED PRN PRN Reason: Sore Nipples Last Admin: 08/18/21 13:21 Dose: 7 gm Documented by: Ephedrine Sulfate (Ephedrine 50 Mg/Ml Sdv) 10 mg IVPUSH Q1M PRN PRN Reason: Hypotension Oxytocin/Sodium Chloride (Oxytocin 30 Unit In Ns 0.9% 500 Ml Premix) 30 unit in 500 mls @ 999 mls/hr IV TITRATE [facility] Tranexamic Acid 1,000 mg/ (Sodium Chloride) 110 mls @ 660 mls/hr IV ONETIME PRN PRN Reason: Bleeding Oxytocin/Sodium Chloride (Oxytocin 30 Unit In Ns 0.9% 500 Ml Premix) 30 unit in 500 mls @ 2 mls/hr IV TITRATE [facility]; Protocol Last Admin: 08/17/21 23:01 Dose: 2 munits/min, 2 mls/hr Documented by: Lactated Ringer's (Ringers, Lactated) 1,000 mls @ 150 mls/hr IV ASDIRECTED [facility] Last Admin: 08/18/21 06:31 Dose: 150 mls/hr Documented by: Ropivacaine 200 mg/ Premix 100 mls @ 0 mls/hr EPIDUR ASDIRECTED [facility] Ibuprofen (Ibuprofen 400 Mg Tab) 400 mg PO Q4H PRN PRN Reason: Pain (mild 1-3) Ibuprofen (Ibuprofen 800 Mg Tab) 800 mg PO Q6H PRN PRN Reason: Cramping Last Admin: 08/19/21 04:50 Dose: 800 mg Documented by: Lidocaine HCl (Lidocaine 1% 20 Ml Mdv) 40 ml INJECT ONETIME PRN PRN Reason: Laceration repair Methylergonovine Maleate (Methylergonovine 0.2 Mg/1 Ml Amp) 0.2 mg IM ASDIRECTED PRN PRN Reason: Post Hemorrhage Miscellaneous Medication (Phenylephrine Hcl In 0.9% Nacl 1 Mg/10 Ml Syringe) 0.1 mg IVPUSH Q1M PRN PRN Reason: Hypotension Misoprostol (Misoprostol 200 Mcg Tab) 200 mcg PO ONETIME PRN PRN Reason: Post Hemorrhage Misoprostol (Misoprostol 25 Mcg (1/4 Of 100 Mcg) Tab) 25 mcg VAG ONETIME PRN PRN Reason: Cervical Ripening Misoprostol (Misoprostol 25 Mcg (1/4 Of 100 Mcg) Tab) 25 mcg VAG Q4H PRN PRN Reason: Cervical Ripening Nalbuphine HCl (Nalbuphine 10 Mg/1 Ml Vial) 10 mg IVPUSH Q1H PRN PRN Reason: Pain (severe 7-10) Ondansetron HCl (Ondansetron 4 Mg/2 Ml Sdv) 4 mg IVPUSH Q4H PRN PRN Reason: Nausea/Vomiting Oxycodone HCl (Oxycodone 5 Mg Tab) 5 mg PO Q2H PRN PRN Reason: Pain (severe 7-10) Sodium Chloride (Sodium Chloride 0.9% 10 Ml Syringe) 10 ml FLUSH ASDIRECTED PRN PRN Reason: Keep Vein Open Sodium Chloride (Sodium Chloride 0.9% 2.5 Ml Syringe) 2.5 ml FLUSH ASDIRECTED PRN PRN Reason: Keep Vein Open Sodium Chloride (Sodium Chloride 0.9% 20 Ml Sdv) 10 ml IV ASDIRECTED PRN PRN Reason: IV Use Sterile Water (Water For Irrigation,Sterile 1,000 Ml Container) 1,000 ml IRR ASDIRECTED PRN PRN Reason: delivery Terbutaline Sulfate (Terbutaline 1 Mg/Ml Sdv) 0.25 mg SUBCUT ASDIRECTED PRN PRN Reason: Tacysystole Witch Kailyn (Witch Kailyn Medicated Pads 40/Jar) 1 pad TOP ASDIRECTED PRN PRN Reason: comfort care Last Admin: 08/18/21 13:21 Dose: 1 pad Documented by: Discontinued Medications Ropivacaine (Naropin 0.2%) Confirm Administered Dose 100 mls @ as directed .ROUTE .STK-MED ONE Stop: 08/18/21 06:21 Last Admin: 08/18/21 07:58 Dose: Not Given Documented by: Lidocaine HCl (Lidocaine 1% 50 Ml Mdv) 50 ml INJECT ONETIME PRN PRN Reason: Laceration repair - Interaction Support Person: - Recovery Exam Fundal Tone: Firm Fundal Level: 1 Fingerbreadths Below Umbilicus Fundal Placement: Midline Lochia Amount: Scant Lochia Color: Rubra/Red Perineum Description: Intact, Minimal Bruising/Swelling Bladder Status: Voiding - Exam General: Alert, Oriented Lungs: Normal Respiratory Effort Cardiovascular: Regular Rate, Regular Rhythm GI/Abdominal Exam: Normal Bowel Sounds, Soft Extremities: Pedal Edema (trace). No: Nicole's Sign Skin: Warm, Dry, Intact Neurological: No New Focal Deficit Psy/Mental Status: Alert, Normal Affect, Normal Mood - Problem List & Annotations (1) Vaginal delivery SNOMED Code(s): 686776334 Code(s): O80 - ENCOUNTER FOR FULL-TERM UNCOMPLICATED DELIVERY Status: Acute Current Visit: No - Problem List Review Problem List Initiated/Reviewed/Updated: Yes - My Orders Last 24 Hours: My Active Orders 08/18/21 11:39 Acetaminophen [Tylenol Extra Strength] 1,000 mg PO Q4H PRN Acetaminophen [Tylenol Extra Strength] 500 mg PO Q4H PRN Benzocaine/Menthol [Dermoplast Pain Relief 20%-0.5% [place]] 78 gm TOP ASDIRECTED PRN Docusate Sodium [Colace] 100 mg PO Q12H PRN Ibuprofen [Motrin] 400 mg PO Q4H PRN Ibuprofen [Motrin] 800 mg PO Q6H PRN Lanolin [Lansinoh HPA] See Dose Instructions TOP ASDIRECTED PRN bisacodyL [Dulcolax] 10 mg RECTAL ONETIME PRN oxyCODONE 5 mg PO Q2H PRN witch Kailyn [Tucks] 1 pad TOP ASDIRECTED PRN 08/18/21 11:40 Patient Status [ADT] Routine May Shower [RC] ASDIRECTED Up ad Lauren [RC] ASDIRECTED Assess Lochia [WOMSER] Per Unit Routine Assess Uterine Involution [WOMSER] Per Unit Routine Peripheral IV Discontinue [OM.PC] Routine 12/30/21 12:17 Lidocaine 1% [Xylocaine 1%] 40 ml INJECT ONETIME PRN 08/19/21 09:24 Ready for Discharge [RC] PER UNIT ROUTINE - Assessment Assessment:: PPD 1 status post /1st MLL repaired - Plan Plan:: Doing well overall. Would like to go home today. Discharge instructions reviewed. Follow up at [facility] 4 weeks. Will continue current regimen for mood disorder, will call if any concerns or feels dosage needs to be adjusted. Declines increasing dose at this time.
--- NOTE | 2021-08-19 10:12 | PCM48HPAN ---
Post Anesthesia Note - EVALUATION WITHIN 48HRS OF ANESTHETIC Vital Signs in Normal Range: Yes Patient Participated in Evaluation: Yes Respiratory Function Stable: Yes Airway Patent: Yes Cardiovascular Function Stable: Yes Hydration Status Stable: Yes Pain Control Satisfactory: Yes Nausea and Vomiting Control Satisfactory: Yes Mental Status Recovered: Yes Vital Signs: Last Vital Signs Temp 36.3 C 08/19/21 04:00 Pulse 80 08/19/21 04:00 Resp 16 08/19/21 04:00 BP 116/81 08/19/21 04:00 Pulse Ox 97 08/19/21 04:00 - COMMENTS/OBSERVATIONS Free Text/Narrative:: Patient states epidural provided adequate analgesia for labor and delivery. Patient denies residual numbness or weakness an denies signs and symptoms of infection.
[2021-08-19 17:23] VITALS: BP 135/74; PULSE 78
== END 2021-08-19 12:30 | disposition home or self-care (01) | DRG 560 ==
LOC: MW.OB 15:55 → MW.OBCHECK 15:55 → MW.OB 16:00 → MW.OBCHECK 16:00 → OBSVTOIN 08-18 08:58 → MW.OB 08-18 13:44
PROVIDERS: ADMIT Obstetrics & Gynecology; ATTEND Obstetrics & Gynecology
PROC: 10E0XZZ Delivery of Products of Conception, External Approach (ICD-10-PCS; principal; 2021-08-18)
PROC: 0HQ9XZZ Repair Perineum Skin, External Approach (ICD-10-PCS; 2021-08-18)
PROC: 3E0R3BZ Introduction of Anesthetic Agent into Spinal Canal, Percutaneous Approach (ICD-10-PCS; 2021-08-18)
PROC: 00HU33Z Insertion of Infusion Device into Spinal Canal, Percutaneous Approach (ICD-10-PCS; 2021-08-18)
DX: O48.0 Post-term pregnancy (principal); Z37.0 Single live birth; O99.284 Endocrine, nutritional and metabolic diseases complicating childbirth; O70.0 First degree perineal laceration during delivery; Z20.822 Contact with and (suspected) exposure to COVID-19; Z3A.40 40 weeks gestation of pregnancy; Z79.899 Other long term (current) drug therapy
CPT/HCPCS: 01967; 36415; 59025; 59409; 82803; 85014; 85018; 85027; 86592; 86850; 86900; 86901; A9270-GY; J0595; J2590; J2795; J7120; U0002